=== PATIENT | female | born 1975 | race Caucasian/White ===

== ENCOUNTER 2017-09-10 21:26 | Emergency (ER) | payer BC ==
--- NOTE | 2017-09-10 23:00 | RAD ---
FOUR VIEWS OF THE RIGHT ELBOW 09/10/17 INDICATIONS: Fall with right elbow pain. FINDINGS: No joint capsular distention is present. Radiocapitellar alignment is normal. No acute fracture or s ubluxation is noted. IMPRESSION: No acute osseous abnormality. POS: [facility]
--- NOTE | 2017-09-10 23:02 | RAD ---
TWO VIEWS OF THE RIGHT SHOULDER: 09/10/17 INDICATION: Right shoulder pain after fall. FINDINGS: There is a comminuted, suspected three part, proximal humerus fracture. The shoulder is held in inter nal rotation on the AP projection. No additional fracture is evident. IMPRESSION: Comminuted proximal right humerus fracture. POS: [facility]
--- NOTE | 2017-09-10 23:23 | RAD ---
THREE VIEWS OF THE RIGHT ANKLE: 09/10/17 INDICATION: History of fall with right ankle pain. COMPARISON: None. IMPRESSION: No acute fracture or subluxation is evident. Enthesopathic changes seen off the calcaneus. POS: [facility]
--- NOTE | 2017-09-10 23:24 | RAD ---
THREE VIEWS OF THE RIGHT FORELE09/10/17 INDICATION: Fall with right leg pain. IMPRESSION: No acute fracture or subluxation demonstrated. No radiopaque foreign body is noted. POS: [facility]
[2017-09-10] MEDS ORDERED: HYDROcodone/Acetaminophen 5/325 mg Tablet ONE (23:35)
[2017-09-10] MEDS ORDERED: Ibuprofen 800 MG TAB ONE (23:35)
== END 2017-09-11 00:30 | disposition home or self-care (01) ==
LOC: ERS 21:26
DX: S42.201A Unspecified fracture of upper end of right humerus, initial encounter for closed fracture (principal); E03.9 Hypothyroidism, unspecified; Z79.899 Other long term (current) drug therapy; W19.XXXA Unspecified fall, initial encounter